=== PATIENT | female | born 1995 | race Caucasian/White ===

== ENCOUNTER → 2017-12-26 | Outpatient (REF) | payer OTHER | LOC: M SFHCLERA 20:31 | DX: J02.9 Acute pharyngitis, unspecified (principal) ==

== ENCOUNTER 2017-12-28 12:13 | Day surgery (SDC) | payer OTHER ==
[2017-12-28] MEDS: NS 1,000 ML IV (16:30)
[2017-12-28 16:50] LABS: BASO % 0.2 % (0.0-1.0); EOS % 0.2 % (0.0-3.0); HEMATOCRIT 38.1 % (36.0-47.0); IMMATURE GRANULOCYTE % 0.5 % (0-3.0); MEAN CORPUSCULAR HEMOGLOBIN 30.2 pg (27.0-33.0); MEAN CORPUSCULAR HGB CONC 34.1 g/dl (32.0-36.5); MEAN CORPUSCULAR VOLUME 88.4 fl (80.0-96.0); MONO # 1.5 10^3/uL (0.0-0.8); MONO % 8.4 % (0.0-5.0); NEUTROPHILS # 14.6 10^3/uL (1.8-7.7); NEUTROPHILS % 84.7 % (36.0-66.0); PLATELET COUNT, AUTOMATED 285 10^3/uL (150-450); RED BLOOD COUNT 4.31 10^6/uL (4.00-5.40); RED CELL DISTRIBUTION WIDTH 11.4 % (11.5-14.5); WHITE BLOOD COUNT 17.2 10^3/uL (4.0-10.0)
[2017-12-28 16:51] LABS: INFLUENZA A AMPLIFICATION NEGATIVE (NEGATIVE); INFLUENZA B AMPLIFICATION NEGATIVE (NEGATIVE)
[2017-12-28 16:52] LABS: CONTROL LINE MONO INT CTR LINE PRESENT; MONO SCRN NEGATIVE (NEGATIVE)
[2017-12-28] MEDS ORDERED: ISOVUE-370 76% 100ML VIAL (Q9967) As Ordered (16:56)
[2017-12-28 16:59] LABS: LACTIC ACID SEPSIS PROTOCOL 0.9 MMOL/L (0.4-2.0)
[2017-12-28 17:01] LABS: ALBUMIN/GLOBULIN RATIO 0.95 (1.00-1.93); ALKALINE PHOSPHATASE 69 U/L (45-117); ALT/SGPT 14 U/L (12-78); ANION GAP 9 MEQ/L (8-16); AST/SGOT 12 U/L (7-37); BILIRUBIN,DIRECT 0.2 MG/DL (0.0-0.2); BLOOD UREA NITROGEN 11 MG/DL (7-18); CALCIUM LEVEL 8.7 MG/DL (8.5-10.1); CARBON DIOXIDE LEVEL 25 MEQ/L (21-32); CHLORIDE LEVEL 103 MEQ/L (98-107); CREATININE FOR GFR 0.68 MG/DL (0.55-1.30); GLUCOSE, FASTING 86 MG/DL (70-100); POTASSIUM SERUM 3.5 MEQ/L (3.5-5.1); SODIUM LEVEL 137 MEQ/L (136-145); TOTAL PROTEIN 8.2 GM/DL (6.4-8.2)
[2017-12-28] MEDS: methylPREDNISolone INJ 125 MG/2 ML VIAL (J2930) IV (18:49)
[2017-12-28] MEDS: CLINDAMYCIN 900 MG in APPROPRIATE DILUENT 1 EA IV (18:49)
[2017-12-28] MEDS: OXYMETAZOLINE NASAL SPRAY (AFRIN) As Ordered (19:17)
[2017-12-28] MEDS ORDERED: fentaNYL 100 MCG/2 ML INJECTION (J3010) As Ordered (19:53)
[2017-12-28] MEDS ORDERED: ROCURONIUM BROMIDE 50 MG/5 ML VIAL As Ordered (19:53)
[2017-12-28] MEDS ORDERED: MIDAZOLAM INJ 2 MG/2 ML VIAL (J2250) As Ordered (19:53)
[2017-12-28] MEDS ORDERED: LIDOCAINE 2% INJ 100 MG/5 ML SDV (FOR ANES.) As Ordered (19:53)
[2017-12-28] MEDS ORDERED: PROPOFOL 200 MG/20 ML VIAL As Ordered (19:53)
[2017-12-28] MEDS ORDERED: SUCCINYLCHOLINE 100 MG/5 ML SYRINGE (J0330) As Ordered (19:54)
[2017-12-28] MEDS: LIDOCAINE W/EPINEPHRINE 1% 20ML VIAL As Ordered (19:58)
[2017-12-28] MEDS ORDERED: METOCLOPRAMIDE INJ 10MG/2ML VIAL (J2765) As Ordered (19:59)
[2017-12-28] MEDS ORDERED: ONDANSETRON 4MG/2ML VIAL (J2405) As Ordered (19:59)
[2017-12-28] MEDS ORDERED: SUGAMMADEX SODIUM 500 MG/5 ML VIAL (BRIDION) As Ordered (20:08)
[2017-12-28] MEDS ORDERED: HYDROMORPHONE HCL 0.5 MG/ 0.5 ML SYRINGE (J1170 PER 1) IV (20:45)
[2017-12-28] MEDS ORDERED: METOCLOPRAMIDE INJ 10MG/2ML VIAL (J2765) IV (20:45)
[2017-12-28] MEDS: LR 1,000 ML IV ×2 (20:45)
[2017-12-28] MEDS ORDERED: MORPHINE 4 MG/ML 1ML VIAL/SYRINGE (J2270) IV (20:45)
[2017-12-28] MEDS ORDERED: ONDANSETRON 4MG/2ML VIAL (J2405) IV ×2 (20:45→21:00)
[2017-12-28] MEDS ORDERED: fentaNYL 100 MCG/2 ML INJECTION (J3010) IV (20:45)
[2017-12-28] MEDS ORDERED: IBUPROFEN 100 MG/5 ML SUSP UDC DYE FREE PO (21:00)
[2017-12-28] MEDS ORDERED: HYDROcodone/APAP LIQUID 7.5-325MG 15ML UDC (LORTAB ELIXIR) PO (21:00)
[2017-12-28] MEDS ORDERED: ACETAMINOPHEN SUSP DYE FREE 160 MG/5 ML UDC PO (22:15)
[2017-12-28] MEDS: IBUPROFEN 100 MG/5 ML SUSP UDC DYE FREE PO (22:21)
[2017-12-29] MEDS ORDERED: CLINDAMYCIN 900 MG in APPROPRIATE DILUENT 1 EA IV
[2017-12-29] MEDS: CLINDAMYCIN 900 MG in APPROPRIATE DILUENT 1 EA IV ×3 (00:30→11:46)
[2017-12-29] MEDS: IBUPROFEN 100 MG/5 ML SUSP UDC DYE FREE PO (06:18)
== END 2017-12-29 14:25 | disposition home or self-care (01) ==
LOC: M ED 12:13 → M SDC 12-29 14:25 → M PED 21:17
DX: J36 Peritonsillar abscess (principal); E66.9 Obesity, unspecified; Z68.41 Body mass index [BMI] 40.0-44.9, adult; Z79.3 Long term (current) use of hormonal contraceptives
CPT/HCPCS: 42700

== ENCOUNTER 2018-10-02 18:19 | Day surgery (SDC) | payer OTHER ==
[~2018-10-02] VITALS: Ht 162.6 cm; Wt 55.5 kg
[~2018-10-02 18:19] MED LIST: ALEV220C2 PO; AUGM875T28 PO; BIRTH CONTROL; IBUP100S2 PO
[2018-10-02] MEDS ORDERED: NS 1,000 ML IV ONE (19:15)
[2018-10-02] MEDS ORDERED: AMPICILLIN SOD/SULBACTAM SOD 3 GM in D5W MINI-BAG PLUS 100 ML IV ONE (19:15)
[2018-10-02] MEDS ORDERED: LIDOCAINE W/EPINEPHRINE 1% 20ML VIAL As Ordered ONE (19:45)
[2018-10-02] MEDS ORDERED: dexameTHASONE 20 MG/5 ML VIAL (J1100) IV ONE (19:45)
[2018-10-02] MEDS ORDERED: dexameTHASONE 4 MG/ML 1ML VIAL (J1100) As Ordered ONE (20:04)
[2018-10-02] MEDS ORDERED: UNASYN 3 GM VIAL As Ordered ONE (20:04)
[2018-10-02 20:09] LABS: HEMATOCRIT 37.7 % (36.0-47.0); MEAN CORPUSCULAR HEMOGLOBIN 29.8 pg (27.0-33.0); MEAN CORPUSCULAR HGB CONC 34.5 g/dl (32.0-36.5); MEAN CORPUSCULAR VOLUME 86.5 fl (80.0-96.0); PLATELET COUNT, AUTOMATED 218 10^3/uL (150-450); RED BLOOD COUNT 4.36 10^6/uL (4.00-5.40); WHITE BLOOD COUNT 13.8 10^3/uL (4.0-10.0)
[2018-10-02 20:21] LABS: HCG, SERUM QUALITATIVE NEGATIVE (NEGATIVE); MONO SCRN NEGATIVE (NEGATIVE)
[2018-10-02 20:41] LABS: ALBUMIN 4.4 GM/DL (3.2-5.2); ALT/SGPT 16 U/L (12-78); BILIRUBIN,DIRECT 0.2 MG/DL (0.0-0.2); BILIRUBIN,TOTAL 0.8 MG/DL (0.2-1.0); BLOOD UREA NITROGEN 13 MG/DL (7-18); C REACTIVE PROTEIN QUANTITATIV 1.61 MG/DL (0.00-0.30); CALCIUM LEVEL 8.5 MG/DL (8.5-10.1); CARBON DIOXIDE LEVEL 26 MEQ/L (21-32); CHLORIDE LEVEL 102 MEQ/L (98-107); CREATININE FOR GFR 0.75 MG/DL (0.55-1.30); GLOMERULAR FILTRATION RATE > 60.0 (>60); GLUCOSE, FASTING 95 MG/DL (70-100); SODIUM LEVEL 135 MEQ/L (136-145); TOTAL PROTEIN 7.7 GM/DL (6.4-8.2)
[2018-10-02] MEDS ORDERED: PROPOFOL 200 MG/20 ML VIAL As Ordered ONE (21:08)
[2018-10-02] MEDS ORDERED: fentaNYL 250 MCG/5 ML INJECTION (J3010) As Ordered ONE (21:08)
[2018-10-02] MEDS ORDERED: LIDOCAINE 2% INJ 100 MG/5 ML SDV (FOR ANES.) As Ordered ONE (21:08)
[2018-10-02] MEDS ORDERED: ROCURONIUM BROMIDE 50 MG/5 ML VIAL As Ordered ONE (21:08)
[2018-10-02] MEDS ORDERED: ONDANSETRON 4MG/2ML VIAL (J2405) As Ordered ONE (21:08)
[2018-10-02] MEDS ORDERED: MIDAZOLAM INJ 2 MG/2 ML VIAL (J2250) As Ordered ONE (21:08)
[2018-10-02] MEDS ORDERED: SUGAMMADEX SODIUM 500 MG/5 ML VIAL (BRIDION) As Ordered ONE (21:22)
[2018-10-02] MEDS ORDERED: fentaNYL 100 MCG/2 ML INJECTION (J3010) IV PRN (22:00)
[2018-10-02] MEDS ORDERED: ONDANSETRON 4MG/2ML VIAL (J2405) IV PRN (22:00)
[2018-10-02] MEDS ORDERED: MEPERIDINE INJ 25 MG/ML VIAL (J2175) IV PRN (22:00)
[2018-10-02] MEDS ORDERED: LR 1,000 ML IV SCH ×2 (22:00)
[2018-10-02 22:38] VITALS: BP 117/71
[2018-10-02 23:00] VITALS: BP 107/64
[2018-10-03] VITALS: BP 109/59
[2018-10-03 02:00] VITALS: BP 104/55
[2018-10-03 04:00] VITALS: BP 106/61
--- NOTE | 2018-10-25 09:07 | RO ---
DATE OF PROCEDURE: 10/02/2018 PREPROCEDURE DIAGNOSIS: Left paratonsillar abscess. POSTPROCEDURE DIAGNOSIS: Left paratonsillar abscess. PROCEDURE: Incision and drainage of the left paratonsillar abscess. SURGEON: Dr. Perez Levine. FORMULATOR: ANESTHESIA: General. CLINICAL PREAMBLE: This 23-year-old woman presented to the [facility] emergency department complaining of left-sided sore throat for the past 2 days. Physical examination revealed asymmetrically enlarged left para tonsillar region which was erythematous, soft palate and even in the uvula. Patient has a prior history of left paratonsillar abscess that was drained in 2018. Management options including incision and drainage of the left paratonsillar abscess have been discussed. The patient understood and consented to the procedure. DESCRIPTION OF PROCEDURE: The patient was identified in the preop holding and brought to the operating room in stable condition. In supine position in the operating room table, patient received anesthesia followed by orotracheal intubation without incident. Patient prepped and draped in the usual fashion for the procedure. The [place] mouth gag was inserted and suspended. The left peritonsillar region was visualized and found to be edematous. The superior pole of the left tonsillar region was infiltrated with 1% lidocaine with 1:100,000 epinephrine. Mucosal incision was made and the left tonsillar capsule was identified and penetrated. Approximately 5 mL of purulent material was drained. The left tonsillar capsule was then irrigated with saline solution. At the end of the procedure, sponge and instrument counts were correct. No complication was encountered. Estimated blood loss was less than 5 mL. General anesthesia was reversed and patient was extubated and brought to the recovery room in stable condition.
== END 2018-10-03 07:05 | disposition home or self-care (01) ==
LOC: M ED 18:19 → M SDC 19:42 → M MSPAV 22:26 → M SDC 10-03 07:05
PROVIDERS: ATTEND Otolaryngology
DX: J39.0 Retropharyngeal and parapharyngeal abscess (principal)
CPT/HCPCS: 36415; 42700; 80048; 80076; 84703; 85027; 86140; 86308; 87040; 87880; 99284; J1100; J2250; J2405; J3010

== ENCOUNTER 2019-11-26 08:33 | Inpatient (IN) | payer OTHER ==
[2019-11-26] VITALS (30 sets, daily range): BP systolic 109–158; BP diastolic 55–99
[~2019-11-26] VITALS: Ht 162.6 cm; Wt 64.6 kg
[~2019-11-26 08:33] MED LIST changes: +IBUP0.77 PO; -IBUP100S2 PO
[2019-11-26] MEDS ORDERED: PRENTAB9 PO (08:55)
[2019-11-26] MEDS ORDERED: LACTATED RINGER'S 1000 ML IV STA (08:56)
[2019-11-26] MEDS ORDERED: LR 1,000 ML IV SCH (08:56)
--- NOTE | 2019-11-26 09:09 | HPEPDOC ---
Obstetrical History & Physical General Date of Admission Nov 26, 2019 at 08:52 History of Present Illness Patient is a 24yo at 39.6wks. C/o contractions j0akkouth for 3hrs. No LOF, VB, headaches, or visual changes. Good movement but difficult to tell with contractions. Information Provided By: Patient Care Care: Good Care Dating Final EDC: Nov 27, 2019 Final EDC by: LMP Past Medical History Past Obstetrical History : Past Obstetrical History: [employer] History: No pertinent history Past Medical History Medical History None Surgical History: Other (Josefa-Tonsil abscess) Family History Significant Family History: No pertinent family hx Social History Marital Status: Family situation: Spouse/partner home Psychosocial History: No pertinent psych hx * Smoker: non-smoker Alcohol: Denies Drugs: denies Abuse Violence Screening Have you been hit/kicked/slapp: No Have you been sexually assault: No Imunizations Tdap status: current Influenza Status: current Allergies Coded Allergies: No Known Allergies (Unverified , 11/26/19) Medications Scheduled No.137/Iron/Folic Acd ( Vitamin Tablet) 1 Each Tablet, 1 TAB PO DAILY Physical Examination Physical Examination GENERAL: Alert and oriented times three. BREAST: . ABDOMEN: Gravid and non-tender to touch. FETUS: Is vertex (VTX) by sterile vaginal examination (SVE), fetus is 3500gm by Blake. HEART RATE: Regular rate and rhythm. LUNGS: Clear to auscultation (CTA). EXTREMITIES: No edema. Laboratory Data 24H LABS Laboratory Tests 2 11/26/19 08:56: Serology Scanned Report Hepatitis B Testing Urine Culture: No Growth Pertinent Laboratoy Data Blood Type: A+ RBC Antibody Screen: Negative HIV: Negative Hepatitis B: Negative Rapid Plasma Reagin: Nonreactive Rubella: Immune Varicella: Nonreactive Chlamydia/Gonorrhea: Negative Group B Streptococcus: Negative Glucose Tolerance Test: 127 Anatomy Ultrasound Ultrasound Date: Jul 09, 2019 Placenta Location: Anterior Normal Anatomy: Yes Placenta Previa: No Estimated Weight (grams): 285 Vaginal Examination Dilation: 5 cm Effacement: 90% Station: -3 Cervical Consistency: Soft Cervical Position: Posterior Presentation: Cephalic presentation Assessment Heart Rate (FHR): 120 Variability: Moderate Accelerations: Positive Decelerations: None Tocometer Contractions: Yes Frequency: regular, every 1-3 min. Multi-drug resistant Organism: No history of MDRO Assessment/Plan Assessment Patient is a 24yo at 39.6wks. Admit for active labor and expect delivery by . Pain management per patient preference, which was discussed with her. I discussed risks of with patient of failure with section, distress, bleeding, infection, , vaginal or perineal or neighboring organ tear. Currently, fetus is reassuring. GBS is negative, no need for antibiotics. Plan Admit and orient. Sparmaker and consent. Diet: Clear. Group B Streptococcus (GBS) negative. Labs and intravenous (IV) per unit protocol. Counseled on Pitocin and induction of labor (IOL). Lactated Ringers (LR): Bolus 500 mL, then at 125 mL/hr. Anticipate normal spontaneous delivery (). Pain management per patient desire. Radha Parra MD Nov 26, 2019 09:09
[2019-11-26 10:12] LABS: BASO % 0.2 % (0.0-1.0); EOS % 0.2 % (0.0-3.0); HEMATOCRIT 41.5 % (36.0-47.0); HEMOGLOBIN 13.3 g/dl (12.0-15.5); LYMPH # 1.4 10^3/uL (1.5-5.0); LYMPH % 11.5 % (24.0-44.0); MEAN CORPUSCULAR HEMOGLOBIN 29.2 pg (27.0-33.0); MEAN CORPUSCULAR VOLUME 91.2 fl (80.0-96.0); MONO # 0.6 10^3/uL (0.0-0.8); NEUTROPHILS % 82.8 % (36.0-66.0); PLATELET COUNT, AUTOMATED 220 10^3/uL (150-450); RED BLOOD COUNT 4.55 10^6/uL (4.00-5.40); WHITE BLOOD COUNT 12.1 10^3/uL (4.0-10.0)
[2019-11-26] MEDS ORDERED: FENTANYL 2MCG/ML ROPIVACAINE 0.2% IN 0.9% NACL 100ML IVBAG As Ordered ONE (10:30)
[2019-11-26] MEDS ORDERED: NALOXONE INJ 0.4MG/1ML VIAL (J2310 PER 1MG) IV PRN (11:30)
[2019-11-26] MEDS ORDERED: LACTATED RINGER'S 1000 ML IV PRN (11:30)
[2019-11-26] MEDS ORDERED: FENTANYL/ROPIVACAINE/NACL BAG 100 ML EPIDURAL SCH (11:30)
[2019-11-26] MEDS ORDERED: diphenhydrAMINE 50MG/ML VIAL (J1200) IV PRN (11:30)
[2019-11-26] MEDS ORDERED: REFRIGERATOR IV KEYS XX PRN (11:30)
[2019-11-26] MEDS ORDERED: EPIDURAL COMMENT XX SCH (11:30)
[2019-11-26] MEDS ORDERED: ePHEDrine SULFATE 25 MG/5 ML(5MG/ML) SYRINGE IV PRN (11:30)
[2019-11-26] MEDS ORDERED: EPIDURAL/PCA KEYS XX PRN (11:30)
[2019-11-26] MEDS ORDERED: ONDANSETRON 4MG/2ML VIAL (J2405 PER 1MG) IV PRN ×2 (11:30→19:30)
--- NOTE | 2019-11-26 13:27 | IPNPDOC ---
Text Note Date of Service The patient was seen on 11/26/19. NOTE Patient comfortable with epidural. VS WNL ABD NT SVE 7/100/0, AROM clear LE SCDs present FHT Category 1, FHR 120s, reactive, no decels. ctx q1-2min A/P: fetus reassuring. Continue expectant mgt. VS,Fishbone, I+O VS, Fishbone, I+O Laboratory Tests 11/26/19 10:00 Vital Signs Date Time Temp Pulse Resp B/P (MAP) Pulse Ox O2 Delivery O2 Flow Rate FiO2 11/26/19 12:54 64 18 141/87 (105) 11/26/19 11:21 97.7 Radha Parra MD Nov 26, 2019 13:26
[2019-11-26] MEDS ORDERED: OXYTOCIN 30 UNITS IN 0.9% NaCl 500ML IV BAG (J2590) As Ordered ONE (17:03)
[2019-11-26] MEDS ORDERED: OXYTOCIN DRIP 30 UNITS in IV 1 EA IV SCH (19:29)
[2019-11-26] MEDS ORDERED: DIBUCAINE 1% OINTMENT 30GM TOP PRN (19:30)
[2019-11-26] MEDS ORDERED: NAPROXEN 250 MG TAB PO PRN (19:30)
[2019-11-26] MEDS ORDERED: RHOGAM 300 MCG (1500 IU) INJ (J2790) IM SCH (19:30)
[2019-11-26] MEDS ORDERED: ACETAMINOPHEN 500 MG TAB PO PRN (19:30)
[2019-11-26] MEDS ORDERED: ANUSOL HC CREAM 30GM TOP PRN (19:30)
[2019-11-26] MEDS ORDERED: METHYLERGONOVINE MALEATE 0.2 MG TAB PO PRN (19:30)
[2019-11-26] MEDS ORDERED: MOM 30ML SUSPENSION UDC PO PRN (19:30)
[2019-11-26] MEDS ORDERED: MEASLES,MUMPS,RUBELLA VACCINE INJ (MMR-II) (90707) SC SCH (19:30)
--- NOTE | 2019-11-26 19:40 | DNPDOC ---
[facility] Delivery Note Delivery Note DATE OF DELIVERY: 11/26/2019 PREDELIVERY DIAGNOSIS: 39-6/7 weeks' gestation and labor. POST DELIVERY DIAGNOSIS: Delivered. PROCEDURE: Spontaneous vaginal delivery DIRECTIONAL BORE OPERATOR: Dr. Parra ANESTHESIA: Epidural. ESTIMATED BLOOD LOSS: 400 mL. FINDINGS: 6 pound 6 ounce 2880gm girl infant, Score 8/9, nuchal cord times 1. DELIVERY SUMMARY: Patient is a 24-year-old 1 now para 1 who was admitted to labor and delivery for active labor for 14hours. Patient AROM clear around 1319. Baby girl head was delivered with Ritkan's maneuver due to FHT's in the 60s without difficulty over intact perineum in CHANG position at 1904. The nose and mouth were bulb suctioned. x1 nuchal cord was noted and reduced at the perineum. The shoulders were then delivered without difficulty. was handed to the pediatric team and no injury to jaw was found. Cord was then clamped x2 and cut after delivery. Pitocin bolus was started. Perineum and vagina was inspected and found to have a small laceration at the left introitus. This was repaired with 2-0 chromic stitch figure of eight. The placenta was then delivered at 1914 spontaneously intact and cord gasses were obtained. Cord had a 3 vessel cord. EBL was 400mL. The vagina and perineum were reinspected and no further lacerations were found and hemostasis was good. Fundus was firm. Patient tolerated delivery well. Radha Parra MD Nov 26, 2019 19:40
[2019-11-26 20:28] LABS: CORD GAS ABE V -7.4; CORD GAS HCO3 V 17.6 MEQ/L; CORD GAS PCO2 V 34.4 mmHg; CORD GAS PH V 7.326 UNITS; CORD GAS PO2 V 63.4 mmHg; CORD GAS SBC V 18.5 MEQ/L; CORD GAS TCO2 V 18.6 MEQ/L
[2019-11-26 20:29] LABS: CORD GAS ABE A -5.3; CORD GAS HCO3 A 21.3 MEQ/L; CORD GAS O2 SAT A 50.4 %; CORD GAS PH A 7.293 UNITS; CORD GAS PO2 A 25.3 mmHg; CORD GAS SBC A 19.1 MEQ/L; CORD GAS TCO2 A 22.7 MEQ/L
[2019-11-26] MEDS: DOCUSATE SODIUM 100 MG CAP PO SCH (21:19)
[2019-11-27] MEDS ORDERED: diphenhydrAMINE 25MG CAP PO PRN (05:15)
[2019-11-27 05:47] VITALS: BP 120/66
--- NOTE | 2019-11-27 06:17 | IPNPDOC ---
Progress Note Date of Service: Nov 27, 2019 Day#: 1 Progress Note SUBJECT: Patient is a 24-year-old 1 now Para 1 status post uncomplicated spontaneous vaginal delivery with post vaginal laceration and repair, doing well day # 1. She has been ambulating, voiding spontaneously without issue and tolerating regular diet. Breast feeding without issue. Reports lochia is li ke a normal period. Patient is ambulating well. Reports some cramping with . Denies any pain. OBJECTIVE: VITAL SIGNS: Within normal limits, afebrile. GENERAL: No acute distress HEENT: MMM BREAST: Nontender, no erythema CARDIOVASCULAR EXAMINATION: RRR RESPIRATORY EXAMINATION: Bilaterally clear ABDOMINAL EXAMINATION: Soft, appropriate tenderness, nondistended, fundus -2 PERINEUM: Intact, minimal lochia EXTREMITIES: no edema, nontender ASSESSMENT: Patient is a 24-year-old 1 now Para 1 status post uncomplicated spontaneous vaginal delivery with post vaginal laceration and repair, doing well day # 1. Vitals within normal limits, afebrile, hemodynamically stable with no evidence of infection. PLAN: 1. Continue care. 2. Tylenol and Naproxen for pain. 3. Encourage breast feeding and ambulation. VS, I&O, 24H, Fishbone Vital Signs/I&O Vital Signs Date Time Temp Pulse Resp B/P (MAP) Pulse Ox O2 Delivery O2 Flow Rate FiO2 11/27/19 05:47 98.1 58 16 120/66 (84) 97 Room Air I&O- Last 24 Hours up to 6 AM 11/27/19 06:00 Intake Total 1746 ml Output Total 1750 ml Balance -4 ml Laboratory Data 24H LABS Laboratory Tests 2 11/26/19 08:56: Serology Scanned Report Hepatitis B Testing 11/26/19 10:00: Immature Granulocyte % (Auto) 0.3, Neutrophils (%) (Auto) 82.8H, Lymphocytes (%) (Auto) 11.5L, Monocytes (%) (Auto) 5.0, Eosinophils (%) (Auto) 0.2, Basophils (%) (Auto) 0.2, Neutrophils # (Auto) 10.0H, Lymphocytes # (Auto) 1.4L, Monocytes # (Auto) 0.6, Eosinophils # (Auto) 0.0, Basophils # (Auto) 0.0, Nucleated Red Blood Cells % (auto) 0.0, Syphilis Serology NONREACTIVE CBC/BMP Laboratory Tests 11/26/19 10:00 Radha Parra MD Nov 27, 2019 06:17
[2019-11-27] MEDS ORDERED: PROC1CRE5 TOP (06:21)
[2019-11-27] MEDS ORDERED: ACET-683 PO (06:21)
[2019-11-27] MEDS ORDERED: DIBU10OI TOP (06:21)
[2019-11-27] MEDS ORDERED: DOCU100C16 PO (06:21)
[2019-11-27] MEDS: PRENATAL VITAMINS CHEWABLE TABLET PO SCH (09:23)
[2019-11-27] MEDS: DOCUSATE SODIUM 100 MG CAP PO SCH ×2 (09:23→21:12)
[2019-11-27 18:00] VITALS: BP 118/76
[2019-11-27 22:00] VITALS: BP 117/73
[2019-11-28 06:00] VITALS: BP 133/82
--- NOTE | 2019-11-28 07:11 | IPNPDOC ---
Progress Note Date of Service: Nov 28, 2019 Day#: 2 Progress Note SUBJECT: Patient is a 24-year-old 1 now Para 1 status post uncomplicated spontaneous vaginal delivery with post vaginal laceration and repair, doing well day # 2. She has been ambulating, voiding spontaneously without issue and tolerating regular diet. Breast feeding without issue. Reports lochia is li ke a normal period. Patient is ambulating well. Reports some cramping with . Denies any pain. OBJECTIVE: VITAL SIGNS: Within normal limits, afebrile. GENERAL: No acute distress HEENT: MMM BREAST: Nontender, no erythema CARDIOVASCULAR EXAMINATION: RRR RESPIRATORY EXAMINATION: Bilaterally clear ABDOMINAL EXAMINATION: Soft, appropriate tenderness, nondistended, fundus -2 PERINEUM: Intact, minimal lochia EXTREMITIES: no edema, nontender ASSESSMENT: Patient is a 24-year-old 1 now Para 1 status post uncomplicated spontaneous vaginal delivery with post vaginal laceration and repair, doing well day # 2. Vitals within normal limits, afebrile, hemodynamically stable with no evidence of infection. PLAN: 1. Discharge to home today. 2. Tylenol and Motrin for pain. 3. Encourage breast feeding and ambulation. 4. Routine PP visit in 6 weeks in clinic. 6. Discussed return precautions at length. VS, I&O, 24H, Fishbone Vital Signs/I&O Vital Signs Date Time Temp Pulse Resp B/P (MAP) Pulse Ox O2 Delivery O2 Flow Rate FiO2 11/27/19 05:47 98.1 58 16 120/66 (84) 97 Room Air I&O- Last 24 Hours up to 6 AM 11/27/19 06:00 Intake Total 1746 ml Output Total 1750 ml Balance -4 ml Laboratory Data 24H LABS Laboratory Tests 2 11/26/19 08:56: Serology Scanned Report Hepatitis B Testing 11/26/19 10:00: Immature Granulocyte % (Auto) 0.3, Neutrophils (%) (Auto) 82.8H, Lymphocytes (%) (Auto) 11.5L, Monocytes (%) (Auto) 5.0, Eosinophils (%) (Auto) 0.2, Basophils (%) (Auto) 0.2, Neutrophils # (Auto) 10.0H, Lymphocytes # (Auto) 1.4L, Monocytes # (Auto) 0.6, Eosinophils # (Auto) 0.0, Basophils # (Auto) 0.0, Nucleated Red Blood Cells % (auto) 0.0, Syphilis Serology NONREACTIVE CBC/BMP Laboratory Tests 11/26/19 10:00 Radha Parra MD Nov 27, 2019 06:17
--- NOTE | 2019-11-28 07:11 | DS.PDOC ---
Discharge Summary General Date of Admission Nov 26, 2019 at 08:52 Date of Discharge 11/28/2019 Discharge Summary PROCEDURES PERFORMED DURING STAY: None. ADMITTING DIAGNOSES: 1. Term 2. Active Labor DISCHARGE DIAGNOSES: 1. Term 2. Active Labor COMPLICATIONS/CHIEF COMPLAINT: Active Labor HISTORY OF PRESENT ILLNESS: see H&P HOSPITAL COURSE: Patient admitted for active labor and had an uncomplicated . Bleeding like menses. Tolerating diet. Passing flatus. Able to ambu late. Pain tolerable with pain medications. Urinating without difficulty. DISCHARGE MEDICATIONS: Please see below. ALLERGIES: Please see below. PHYSICAL EXAMINATION ON DISCHARGE: VITAL SIGNS: Please see below. GENERAL: No acute distress HEENT: MMM BREAST: Nontender, no erythema CARDIOVASCULAR EXAMINATION: RRR RESPIRATORY EXAMINATION: Bilaterally clear ABDOMINAL EXAMINATION: Soft, appropriate tenderness, nondistended, fundus -2 EXTREMITIES: no edema, nontender LABORATORY DATA: Please see below. IMAGING: none PROGNOSIS: Good ACTIVITY: Pelvic rest. DIET: Regular DISCHARGE PLAN: Home DISPOSITION: . DISCHARGE INSTRUCTIONS: 1. See attached. ITEMS TO FOLLOWUP ON ON OUTPATIENT: 1. 2wks in clinic. DISCHARGE CONDITION: Stable. TIME SPENT ON DISCHARGE: Greater than 10 minutes. Vital Signs/I&Os Vital Signs Date Time Temp Pulse Resp B/P (MAP) Pulse Ox O2 Delivery O2 Flow Rate FiO2 11/27/19 05:47 98.1 58 16 120/66 (84) 97 Room Air I&O- Last 24 Hours up to 6 AM 11/27/19 06:00 Intake Total 1746 ml Output Total 1750 ml Balance -4 ml Laboratory Data Labs 24H Laboratory Tests 2 11/26/19 08:56: Serology Scanned Report Hepatitis B Testing 11/26/19 10:00: Immature Granulocyte % (Auto) 0.3, Neutrophils (%) (Auto) 82.8H, Lymphocytes (%) (Auto) 11.5L, Monocytes (%) (Auto) 5.0, Eosinophils (%) (Auto) 0.2, Basophils (%) (Auto) 0.2, Neutrophils # (Auto) 10.0H, Lymphocytes # (Auto) 1.4L, Monocytes # (Auto) 0.6, Eosinophils # (Auto) 0.0, Basophils # (Auto) 0.0, Nucleated Red Blood Cells % (auto) 0.0, Syphilis Serology NONREACTIVE CBC/BMP Laboratory Tests 11/26/19 10:00 Discharge Medications Scheduled Docusate Sodium (Docusate Sodium) 100 Mg Capsule, 100 MG PO BID No.137/Iron/Folic Acd ( Vitamin Tablet) 1 Each Tablet, 1 TAB PO DAILY, (Reported) Scheduled PRN Acetaminophen (Acetaminophen) 500 Mg Tablet, 1,000 MG PO Q6HP PRN for pain, headache, fever Dibucaine (Dibucaine) 28 Gm Oint...g., 0 DOSE TOP Q4HP PRN for PAIN Hydrocortisone (Proctozone-Hc) 30 Gm Crm.pe.bassem, 0 DOSE TOP Q4HP PRN for DISCOMFORT Allergies Coded Allergies: No Known Allergies (Unverified , 11/26/19) Radha Parra MD Nov 27, 2019 06:20
[2019-11-28] MEDS: PRENATAL VITAMINS CHEWABLE TABLET PO SCH (09:04)
[2019-11-28] MEDS: DOCUSATE SODIUM 100 MG CAP PO SCH (09:04)
[2019-11-28] MEDS ORDERED: PRENTAB9 PO (13:00)
== END 2019-11-28 14:00 | disposition home or self-care (01) | DRG 807 ==
LOC: M LDO 08:33 → M LDI 08:52 → M OBS 20:48
PROVIDERS: ADMIT Obstetrics & Gynecology; ATTEND Obstetrics & Gynecology
PROC: 10E0XZZ Delivery of Products of Conception, External Approach (ICD-10-PCS; principal; 2019-11-26)
PROC: 0HQ9XZZ Repair Perineum Skin, External Approach (ICD-10-PCS; 2019-11-26)
PROC: 10907ZC Drainage of Amniotic Fluid, Therapeutic from Products of Conception, Via Natural or Artificial Opening (ICD-10-PCS; 2019-11-26)
DX: O69.81X0 Labor and delivery complicated by cord around neck, without compression, not applicable or unspecified (principal); Z37.0 Single live birth; Z3A.39 39 weeks gestation of pregnancy; O70.0 First degree perineal laceration during delivery